=== PATIENT | female | born 1965 | race Caucasian/White ===

== ENCOUNTER → 2017-02-09 | Outpatient (CLI) | payer MEDICARE, BC ==
[~2017-02-09] MED LIST: ADRENOID CAPSU1 EACH PO; B COMPLEX1 EACH PO; CELEBREX100 MG PO; CELEXA10 M1 PO; CELEXA10 MG PO; CELEXA20 MG PO; CORTISPORI10 ML OTIC AS; DEXAMETHASONE4 MG PO; KEPPRA1000 MG PO; KEPPRA750 M1 PO; KEPPRA750 MG PO; LUNESTA PO; LYRICA PO; MULTI VITAMIN1 EACH PO; MULTIVITAMINS1 EAC3 PO; NOTE; VIMPAT150 MG PO; VITAMIN B122500 MCG PO; VITAMIN D1000 UNIT PO; WOMEN'S DAILY1 EAC4 PO; ZOFRAN PO
--- NOTE | ~2017-02-09 | CR278 ---
[facility] [[email or web address] A Service of [facility] & [facility] RADIOLOGY TEXT RESULTS PATIENT: ANALI WALKER LOCATION: [facility] : 63 UNIT #: [id number] AGE: [address]: Reinaldo Jones MD SEX: F ORDER DR: [id number] [address] [address] [id number] O MR#: [id number] Acc #: [id number] NAME: ANALI WALKER : 1965 SEX: F STUDY DATE/TIME: 02/09/2017 15:18 UNIT: SRAD ROOM: STUDY DESCRIPTION: CR Wrist 2 View Lt Attending Physician: Reinaldo Jones M.D. Referring Physician: Reinaldo Jones M.D. Ordering Physician: Reinaldo Jones M.D. Primary Care Physician: Chavez Toro M.D. MEDICAL IMAGING REPORT This report is preliminary unless electronic signature is present. EXAM Left wrist 2 views 02/09/2017 HISTORY Left wrist pain distal forearm pain for 2 weeks. No known injury. Pain medial and lateral aspect of the left wrist. FINDINGS Wrist evaluation in multiple projections shows normal mineralization of the bony structures about the wrist and satisfactory articular relationship of the radius and ulna to the proximal carpal row and of the distal carpal segments to the metacarpal bases. There is no indication of fracture or dislocation, and no soft tissue radiopaque foreign body is present. No congenital defects are apparent. IMPRESSION Normal wrist. Dictated by... Hernan Obregon M.D. THIS IS AN ELECTRONICALLY VERIFIED REPORT Hernan Obregon M.D. at 02/12/2017 10:36 AM RIKKI/bryan TD: 02/10/2017 05:29 JOB #: [id number] MEDICAL IMAGING REPORT
== END | disposition home or self-care (01) ==
LOC: SRAD 15:08
DX: C71.1 Malignant neoplasm of frontal lobe (principal); G40.109 Localization-related (focal) (partial) symptomatic epilepsy and epileptic syndromes with simple partial seizures, not intractable, without status epilepticus; G72.0 Drug-induced myopathy; R63.5 Abnormal weight gain
CPT/HCPCS: 73100

== ENCOUNTER → 2017-02-20 | Outpatient (CLI) | payer MEDICARE, BC ==
--- NOTE | ~2017-02-20 | MR17 ---
[facility] A Service of [facility] & [facility] RADIOLOGY TEXT RESULTS PATIENT: ANALI WALKER [facility] 63 UNIT #: [id number] AGE: [address]: Reinaldo Jones MD SEX: F ORDER DR: [id number] [address] [address] [id number] O MR#: [id number] Acc #: [id number] NAME: ANALI WALKER : 1965 SEX: F STUDY DATE/TIME: 02/20/2017 17:03 [facility] ROOM: STUDY DESCRIPTION: MR Brain WWo Contrast Attending Physician: Reinaldo Jones M.D. Ordering Physician: Reinaldo Jones M.D. Primary Care Physician: Chavez Toro M.D. MRI CENTER REPORT This report is preliminary unless electronic signature is present. EXAM MRI of the brain without and with HISTORY Malignant neoplasm frontal lobe, grade 2 astrocytoma for followup. Chemotherapy in 2014, radiation therapy in 2015. Surgery in 2012. COMMENT MRI of the brain was performed prior to and following intravenous administration of 12 mL of MultiHance. There is a comparison study from 11/16/2016. Redemonstrated are postoperative and post-therapeutic changes to the patient's known astrocytoma centered at the left posterior frontal left anterior parietal lobe. Multiseptate cystic mass predominates. Measurements are about 3.7 x 3.4 x 2.0 cm and it is essentially stable. There are several areas of increased signal intensity on T1-weighted imaging on precontrast imaging. This is most consistent with old blood product or mineral deposition and the appearance is unchanged from prior. Allowing for this precontrast high-signal intensity I believe there is a nodular focus of enhancement at the medial aspect of the left thalamus which is new about 7.0 mm in dimension and in the current setting most worrisome for some local tumor progression. I would suggest followup imaging in about 3 months to reassess this area. Post therapeutic change such as radiation necrosis is in the differential but felt less likely. The small area of nodular enhancement is also associated with some new FLAIR and T2 signal abnormality though there is no appreciable mass effect at this time. There is also a focus of new T2 and FLAIR signal abnormality in the left posterior frontal centrum semiovale that measures about 1.1 cm in dimension. This is nonspecific and could be related to tumor progression or post-therapeutic change. Otherwise the pattern of T2 and FLAIR signal abnormality is relatively stable. There are some small STS. [facility] A Service of [facility] RADIOLOGY TEXT RESULTS PATIENT: ANALI WALKER [facility] 63 UNIT #: [id number] AGE: [address]: Reinaldo Jones MD SEX: F ORDER DR: areas of old blood product deposition relatively stable. There is no extraaxial fluid collection. There is no hydrocephalus or midline shift. The major intracranial flow voids are maintained. Paranasal sinuses are clear. The mastoid air cells are clear. IMPRESSION On comparison to the study from 11/16/2016, there has been the interval development of a small area of nodular enhancement at the medial aspect of the left thalamus up to about 7.0 mm largest diameter. It is not associated with mass effect. It lies just medial to the areas of mineral deposition noted previously. Additionally, there is a small area of T2 and FLAIR signal abnormality, new in the left frontal centrum semiovale up to about 1.1 cm dimension. This is not associated with enhancement or mass effect. The cystic area of the postoperative bed is stable. Measurements are given above. There is no midline shift or hydrocephalus. The areas of change could be due to progression of tumor or alternatively could be due to post-therapeutic change such as radiation necrosis. For this reason I would recommend a short-term followup MRI in about 3 months to reassess. STAT * RESULT Dictated by... Alma Mccarthy M.D. THIS IS AN ELECTRONICALLY VERIFIED REPORT Alma Mccarthy M.D. at 02/21/2017 4:35 PM Santo TD: 02/21/2017 11:51 JOB #: [id number] MRI CENTER REPORT Page 1 of 1
== END | disposition home or self-care (01) ==
LOC: SMRI 16:23
DX: C71.1 Malignant neoplasm of frontal lobe (principal); G40.109 Localization-related (focal) (partial) symptomatic epilepsy and epileptic syndromes with simple partial seizures, not intractable, without status epilepticus; G72.0 Drug-induced myopathy; G93.89 Other specified disorders of brain
CPT/HCPCS: 70553; A9581

== ENCOUNTER 2017-05-13 19:28 | Inpatient (IN) | payer MEDICARE, BC ==
--- NOTE | ~2017-05-13 | HP ---
Unit #: [id number] #: [id number] Patient: ANALI WALKER [id number] [address] [place], [place] [address] [id number] I MR#: [id number] NAME: ANALI WALKER ROOM: 306 Age: 51 Sex: F Admission Date: 05/13/2017 : 1965 Attending Physician: Chavez Toro M.D. Primary Care Physician: Chavez Toro M.D. HISTORY AND PHYSICAL HISTORY OF PRESENT ILLNESS The patient is a 51-year-old white female with a history of astrocytoma with frontal lobe (1) secondary to seizure disorder, fibromyalgia syndrome, secondary to previous craniotomy. Currently he is being treated by Dr. Jones, as well as (2) with emergence with [facility], presented to the emergency room with one week of worsening right-sided weakness. In the emergency room she was revaluated and had normal vital signs and normal labs. CT scan showed no change. They consulted Dr. Rogel who is web application dev specialist for Dr. oJnes who reports to us to admit the patient for MRI, which is already scheduled toward the end of the month. She has had no recent seizures. No change in bowel or bladder habits, although she had one episode of urinary incontinence last week. Her mother is at the bedside during the history and physical examination. She is still ambulatory. She definitely had increased weakness in the right face, right arm, and right leg. I am no sure what the plan is at this point but in any case she is going to resume under home meds. SCDs are in place for DVT prophylaxis. Oncology is being consulted. Neurology was consulted but the patient refuses. ALLERGIES Penicillin. MEDICATIONS PRIOR TO ADMISSION Vimpat 150 mg b.i.d.; Lyrica 150 mg daily; Keppra 1,000 mg b.i.d.; Celexa 20 mg daily; B12 500 mcg daily; multivitamins daily; Celebrex 100 mg b.i.d.; vitamin D 1,000 units daily. PAST SURGICAL HISTORY Previous craniotomy and hysterectomy. SOCIAL HISTORY Drinks alcohol occasionally. No tobacco use. No street drug use. FAMILY HISTORY Noncontributory. SOCIAL HISTORY She is a hairdresser. PHYSICAL EXAMINATION GENERAL: She is awake, alert and oriented x3 in no acute distress. VITAL SIGNS: Mother is at the bedside and afebrile, pulse 67, respirations 16, blood pressure 134/89, O2 sat 96% on room air. HEENT: Unremarkable except for some right facial drooping. Unit #: [id number] #: [id number] Patient: WALKER,ANALI NECK: Supple without JVD, lymphadenopathy or thyromegaly. CHEST: Clear to auscultation. HEART: Regular rate and rhythm without any murmurs, rubs or gallops. ABDOMEN: Soft, nondistended and nontender with positive bowel sounds and no hepatosplenomegaly. EXTREMITIES: No clubbing, cyanosis or edema. The patient has decreased sensation and strength throughout the right entire side. She has 3/4 strength in the right upper extremity and 4/5 in the right lower extremity. DIAGNOSTIC STUDIES LAB VALUES: Urinalysis normal. CBC normal. CMP normal except for a sodium of 134 IMAGING STUDIES: CT scan of the brain may change per ER physician. IMPRESSION 1. Left frontal lobe astrocytoma. 2. Secondary to seizure disorder. 3. Fibromyalgia syndrome. 4. Right hemiparesis. PLAN MRI with and without contrast. Oncology consultation. Further evaluation pending results of the above. Dictated by Chavez Toro M.D. AURELIANO/yoandy TD: 05/14/2017 08:07 JOB #: [id number] HISTORY AND PHYSICAL Page 1 of 1 X Chavez Toro MD X HISTORY AND PHYSICAL
--- NOTE | ~2017-05-13 | MR122 ---
[facility] A Service of [facility] / [facility] RADIOLOGY TEXT RESULTS PATIENT: ANALI WALKER LOCATION: [facility] 306- : [birth year] UNIT #: [id number] AGE: [address]: Chavez Toro MD SEX: F ORDER DR: [id number] [id number] [facility]. [place], [place] [address] [id number] I MR#: [id number] Acc #: [id number] NAME: ANALI WALKER : 1965 SEX: F STUDY DATE/TIME: 05/14/2017 8:09 UNIT: A [facility] ROOM: 306 STUDY DESCRIPTION: MR MRA Head Wo Contrast Attending Physician: Chavez Toro M.D. Ordering Physician: Chavez Toro M.D. Primary Care Physician: Chavez Toro M.D. MRI CENTER REPORT This report is preliminary unless electronic signature is present. EXAM Head MRA, no contrast, 05/14/2017. HISTORY 1-week history of decreasing mobility of right arm and leg. History of astrocytoma. PROCEDURE Axial rosw-eb-qsoeuc head MRA with 3-dimensional reformats. 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 There is symmetric intracranial vascularity, though there is slight mass effect on the left distal MCA territory vessels, due to the left frontoparietal tumor. There is no aneurysm or flow-limiting stenosis. IMPRESSION Potentially normal head MRA. No aneurysm or flow-limiting stenosis. Somewhat distorted/displaced vascularity in the left MCA territory secondary to the known brain tumor, but no acute vascular abnormality is seen. Dictated by... Sabas Warner M.D. THIS IS AN ELECTRONICALLY VERIFIED REPORT Sabas Warner M.D. at 05/15/2017 3:59 PM ALY/santi TD: 05/14/2017 17:20 [facility] A Service of [facility] / [facility] RADIOLOGY TEXT RESULTS PATIENT: ANALI WALKER LOCATION: [facility] 306-01 : [birth year] UNIT #: [id number] AGE: [address]: Chavez Toro MD SEX: F ORDER DR: JOB #: [id number] MRI CENTER REPORT Page 1 of 1 COPY
--- NOTE | ~2017-05-13 | CT71 ---
[facility] A Service of [facility] & [facility] RADIOLOGY TEXT RESULTS PATIENT: ANALI WALKER LOCATION: [facility] 306-01 : [birth year] UNIT #: [id number] AGE: [address]: Chavez Toro MD SEX: F ORDER DR: [id number] [facility] [address] [facility]. [place], [place] [address] [id number] I MR#: [id number] Acc #: [id number] NAME: ANALI WALKER : 1965 SEX: F STUDY DATE/TIME: 05/13/2017 20:54 UNIT: [facility] ROOM: 306 STUDY DESCRIPTION: CT Head Wo Contrast Attending Physician: Chavez Toro M.D. Ordering Physician: Saul Kang Aprn Primary Care Physician: Chavez Toro M.D. MEDICAL IMAGING REPORT This report is preliminary unless electronic signature is present EXAM CT head without contrast dated 05/13/2017. MRI brain with and without contrast dated 02/20/17. COMPARISON CT head without contrast dated 02/28/2016. HISTORY Decreased mobility of the right side of the body for 1 week, worsening. History of left frontal lobe tumor. The CT exam was performed with one or more of the following radiation dose reduction techniques: automatic exposure control, adjustment of mA and/or kV according to patient size, and iterative reconstruction. FINDINGS CT of the head was obtained without contrast in the axial plane as per the protocol. Status post left frontal craniotomy along the posterior and inferior aspect. Stable. Underlying hypodense 3.0 x 3.4 cm lesion is noted with peripheral calcification along the medial and inferior aspect. There are probably some thin septations in it too. Previously it measured 3.4 x 3.2 cm and it is probably relatively stable given the differences in slice selection. No significant adjacent edematous change. There is a new hypodense 7 mm lesion in the left thalamus when compared to the prior CT head from 02/28/2016 but it is stable when compared to the previous MRI brain from 02/20/2017. No significant interval new abnormality. Mastoid air cells and paranasal sinuses are unremarkable. Orbits with the ocular structures do not demonstrate any significant abnormality. IMPRESSION 1. No significant interval worsening when compared to the MRI brain from [facility] A Service of [facility] RADIOLOGY TEXT RESULTS PATIENT: ANALI WALKER LOCATION: [facility] 306-01 : [birth year] UNIT #: [id number] AGE: [address]: Chavez Toro MD SEX: F ORDER DR: 02/20/2017. 2. No new lesions including hemorrhage or mass. Previously noted lesions are stable. Dictated by... Ivelisse Mercado M.D. THIS IS AN ELECTRONICALLY VERIFIED REPORT Ivelisse Mercado M.D. at 05/14/2017 9:05 PM CPR/cmm TD: 05/14/2017 08:55 JOB #: [id number] MEDICAL IMAGING REPORT Page 1 of 1 COPY
--- NOTE | ~2017-05-13 | MR17 ---
[facility] A Service of [facility] & [facility] RADIOLOGY TEXT RESULTS PATIENT: ANALI WALKER LOCATION: [facility] 306-01 : 63 UNIT #: [id number] AGE: [address]: Chavez Toro MD SEX: F ORDER DR: [id number] [facility] [address] [place], [place] [address] [id number] I MR#: [id number] Acc #: [id number] NAME: ANALI WALKER : 1965 SEX: F STUDY DATE/TIME: 05/14/2017 8:19 UNIT: [facility] U ROOM: 306 STUDY DESCRIPTION: MR Brain WWo Contrast Attending Physician: Chavez Toro M.D. Ordering Physician: Chavez Toro M.D. Primary Care Physician: Chavez Toro M.D. MRI CENTER REPORT This report is preliminary unless electronic signature is present. EXAM Brain MRI with and without contrast 05/14/2017 COMPARISON 02/20/2017 PROCEDURE Routine brain MRI with and without contrast. CLINICAL HISTORY Grade 2 astrocytoma with 1 week history of decreasing mobility of right arm and leg. FINDINGS There is no MR evidence of acute restricted diffusion. There is a redemonstrated cystic intra-axial lesion on the left, which measures approximately 3.4 cm mediolaterally x 2.1 cm craniocaudally x 3.7 cm anteroposteriorly, which of itself is not significantly changed. However, clearly new since the prior study is abnormal signal and positive mass effect extending into the posterior corpus callosum and callosal genu, as well as increased abnormal signal in the left posterior thalamus when compared to the prior study. Postcontrast images show a new small area of cystic enhancement in the left posterior thalamus. There may have been a previously faint side enhancement in this region but it is I now cystic in appearance and currently measures about 12 x 7 mm compared to about 8 x 4 mm on the prior study. On coronal images, it measures about 11 x 6 mm compared to 7 x 5 mm on the prior exam. New abnormal FLARE signal is also seen in the putamen and globus pallidus when compared to the prior study, though not associated with abnormal enhancement. IMPRESSION STS. [facility] A Service of [facility] & [facility] RADIOLOGY TEXT RESULTS PATIENT: ANALI WALKER LOCATION: [facility] 306-01 : [birth year] UNIT #: [id number] AGE: [address]: Chavez Toro MD SEX: F ORDER DR: 1. New cystic change in the left thalamus/thalamic pulvinar and new mass effect in the posterior corpus callosum/callosal genu without abnormal enhancement, suggesting new tumor growth, as well as new abnormal signal in the left putamen and globus pallidus though whether this represents vasogenic edema or a nonenhancing tumor extension is less certain. 2. The primary cystic portion of the tumor itself is not convincingly changed since the prior study. There is no midline shift or hydrocephalus. Dictated by... Sabas Warner M.D. THIS IS AN ELECTRONICALLY VERIFIED REPORT Sabas Warner M.D. at 05/15/2017 3:58 PM TEV/aa TD: 05/14/2017 15:44 JOB #: [id number] MRI CENTER REPORT Page 1 of 1 COPY
[~2017-05-13 19:28] MED LIST changes: -B COMPLEX1 EACH PO; -CELEBREX100 MG PO; -CELEXA10 M1 PO; -CELEXA20 MG PO; -KEPPRA1000 MG PO; -MULTIVITAMINS1 EAC3 PO; -NOTE; -VIMPAT150 MG PO; -VITAMIN B122500 MCG PO; -VITAMIN D1000 UNIT PO; -WOMEN'S DAILY1 EAC4 PO; -ZOFRAN PO
[2017-05-13 20:55] LABS: URINE APPEARANCE CLEAR; URINE BILIRUBIN NEG (NEG); URINE BLOOD NEG (NEG); URINE COLOR YELLOW; URINE GLUCOSE NEG (NEG); URINE KETONE NEG (NEG); URINE LEUKOCYTE ESTERASE NEG (NEG); URINE NITRATE NEG (NEG); URINE PROTEIN NEG (NEG); URINE SPECIFIC GRAVITY 1.008 (1.003-1.035)
[2017-05-13 20:58] LABS: CULTURE INDICATED? NO
[2017-05-13 21:38] LABS: BASOPHIL# 0.1 X10e3 (0-0.3); BASOPHIL% 1.3 % (0-2.5); EOSINOPHIL# 0.2 X10e3 (0-0.7); EOSINOPHIL% 3.1 % (0.0-7.0); HEMATOCRIT 38.1 % (35.0-45.0); HEMOGLOBIN 13.2 gm/dL (12.0-16.0); LYMPHOCYTE# 1.4 X10e3 (1.0-3.5); LYMPHOCYTE% 27.7 % (17.0-45.0); MEAN CORPUSCULAR HEMOGLOBIN 31.5 PG (28-34); MEAN CORPUSCULAR HGB CONC 34.6 g/dL (30-36); MEAN PLATELET VOLUME 6.3 FL (6.5-11.5); MONOCYTE# 0.5 X10e3 (0-1.0); NEUTROPHIL# 2.8 X10e3 (1.5-7.1); NEUTROPHIL% 57.9 % (40-75); PLATELET COUNT 172 X10e3 (140-420); RED BLOOD COUNT 4.19 X10e (3.90-5.30); RED CELL DISTRIBUTION WIDTH 13.5 % (11.0-15.5); WHITE BLOOD COUNT 4.9 X10e3 (4.0-10.5)
[2017-05-13 21:43] LABS: DIFF IND NO
[2017-05-13 22:50] LABS: BILIRUBIN,TOTAL 0.5 mg/dL (0.2-2.0); BUN/CREATININE RATIO 25.71; CALCIUM SERUM 8.7 mg/dL (8.4-10.2); CREATININE SERUM 0.7 mg/dL (0.6-1.4); GLOM FILT RATE Estimated 99.6 mL/min (>60); POTASSIUM 3.6 mmol/L (3.5-5.1); PROTEIN TOTAL SERUM 6.1 g/dL (6.0-8.3)
[2017-05-13 22:52] LABS: BILIRUBIN, DIRECT 0.1 mg/dL (0.0-0.2); BILIRUBIN,INDIRECT 0.4 mg/dL (0.0-0.9)
[2017-05-13] MEDS ORDERED: VIMPAT150 MG PO (23:17)
[2017-05-13] MEDS ORDERED: LYRICA PO (23:17)
[2017-05-13] MEDS ORDERED: KEPPRA1000 MG PO (23:31)
[2017-05-13] MEDS ORDERED: CELEXA20 MG PO (23:32)
[2017-05-13] MEDS ORDERED: VITAMIN B122500 MCG PO (23:33)
[2017-05-13] MEDS ORDERED: WOMEN'S DAILY1 EAC4 PO (23:33)
[2017-05-13] MEDS ORDERED: CELEBREX100 MG PO (23:34)
[2017-05-13] MEDS ORDERED: VITAMIN D1000 UNIT PO (23:34)
[2017-05-14 05:45] LABS: BASOPHIL% 1.1 % (0-2.5); EOSINOPHIL# 0.2 X10e3 (0-0.7); EOSINOPHIL% 4.6 % (0.0-7.0); LYMPHOCYTE# 1.3 X10e3 (1.0-3.5); LYMPHOCYTE% 28.8 % (17.0-45.0); MEAN CORPUSCULAR HEMOGLOBIN 30.6 PG (28-34); MEAN CORPUSCULAR HGB CONC 33.2 g/dL (30-36); MEAN PLATELET VOLUME 6.5 FL (6.5-11.5); MONOCYTE# 0.5 X10e3 (0-1.0); MONOCYTE% 12.1 % (3.0-12.0); NEUTROPHIL# 2.3 X10e3 (1.5-7.1); NEUTROPHIL% 53.4 % (40-75); PLATELET COUNT 164 X10e3 (140-420); RED BLOOD COUNT 4.24 X10e (3.90-5.30); RED CELL DISTRIBUTION WIDTH 13.5 % (11.0-15.5); WHITE BLOOD COUNT 4.4 X10e3 (4.0-10.5)
[2017-05-14 05:56] LABS: DIFF IND NO
[2017-05-14 06:23] LABS: CREATININE SERUM 0.5 mg/dL (0.6-1.4); GLOM FILT RATE Estimated 111.3 mL/min (>60); POTASSIUM 3.7 mmol/L (3.5-5.1)
== END 2017-05-14 21:00 | disposition home or self-care (01) | DRG 55 ==
LOC: CED 19:28 → C3A PCU 23:25 → CEDOF 23:25 → C3A PCU 23:40 → CED 23:40 → C3A PCU 05-14 01:40 → CEDOF 05-14 01:40 → C3A PCU 05-14 21:00
PROVIDERS: Internal Medicine; Nurse Practitioner Family
DX: C71.1 Malignant neoplasm of frontal lobe (principal); G81.91 Hemiplegia, unspecified affecting right dominant side; G40.909 Epilepsy, unspecified, not intractable, without status epilepticus; M79.7 Fibromyalgia; Z88.0 Allergy status to penicillin; Z90.710 Acquired absence of both cervix and uterus
CPT/HCPCS: 36415; 70450; 70544; 70553; 80048; 80076; 81003; 85025; 99285; A9577; J1100

== ENCOUNTER → 2017-06-26 | Outpatient (CLI) | payer MEDICARE, BC ==
[~2017-06-26] MED LIST changes: +B COMPLEX1 EACH PO; +CELEBREX100 MG PO; +CELEXA10 M1 PO; +CELEXA20 MG PO; +KEPPRA1000 MG PO; +MULTIVITAMINS1 EAC3 PO; +NOTE; +VIMPAT150 MG PO; +VITAMIN B122500 MCG PO; +VITAMIN D1000 UNIT PO; +WOMEN'S DAILY1 EAC4 PO; +ZOFRAN PO
--- NOTE | ~2017-06-26 | MR17 ---
[facility] A Service of [facility] & [facility] RADIOLOGY TEXT RESULTS PATIENT: ANALI WALKER LOCATION: [facility] : 63 UNIT #: [id number] AGE: [address]: Reinaldo Jones MD SEX: F ORDER DR: [id number] [address] [address] [id number] O MR#: [id number] Acc #: [id number] NAME: ANALI WALKER : 1965 SEX: F STUDY DATE/TIME: 06/26/2017 13:21 UNIT: [facility] ROOM: STUDY DESCRIPTION: MR Brain WWo Contrast Attending Physician: Reinaldo Jones M.D. Referring Physician: Reinaldo Jones M.D. Ordering Physician: Reinaldo Jones M.D. Primary Care Physician: Chavez Toro M.D. MRI CENTER REPORT This report is preliminary unless electronic signature is present. EXAM MRI of the brain with and without HISTORY Malignant neoplasm. Followup known grade 2 astrocytoma. Postop 2012. The patient complains of decreased mobility right side of body. Assess for progression since 05/14/2017. The patient is currently on chemotherapy and had radiation therapy in 2016. MRI of the brain was performed prior to and following intravenous administration of 11 mL of MultiHance. COMPARISON: Comparison from 05/14/2017. There is interval worsening in the appearance of the brain. Again there is a mass lesion centered in the left posterior frontal anterior parietal lobe with multiloculated cystic component and surrounding T2 and FLAIR signal abnormality. The signal abnormality involves the left basal ganglia and thalamus and extends into the posterior aspect of the corpus callosum centered at the posterior body. Signal abnormality crosses to the right of midline in the corpus callosum. In comparison to prior study, there is increased size to be partially cystic/necrotic lesion in the left thalamus. This is associated with some increased surrounding enhancement and there is also increased enhancement in the portion of the tumor at the medial aspect of the large cystic component left parietooccipital lobe and extending into the posterior body of the left side corpus callosum. The thalamic lesion now measures about 1.7 cm largest axial dimension as compared to 1.2 cm of largest axial dimension. Also some increasing enhancement at the left lateral putamen and insula. There is increased local mass effect related to the enlarging lesions and there is some increased effacement of the left lateral ventricle. New/increasing enhancement is seen in the superior aspect of the left STS. [facility] A Service of [facility] RADIOLOGY TEXT RESULTS PATIENT: ANALI WALKER LOCATION: [facility] : 63 UNIT #: [id number] AGE: [address]: Reinaldo Jones MD SEX: F ORDER DR: temporal lobe and insula. Large cystic lesion centered in the left posterior frontal interparietal lobe is relatively stable. At this time there is no midline shift. There is no extraaxial fluid collection. There is no downward herniation. Chronic postoperative change is again noted. Areas of susceptibility again seen consistent with old blood product or mineral deposition. No recent intracranial hemorrhage is suspected on MRI. The major arterial intracranial flow voids are maintained. The mastoid air cells are clear and the paranasal sinuses are clear. IMPRESSION 1. The appearance of the brain is worse on comparison to 05/14/2017 with interval increase in size of the known mass lesion as well as interval increase in the amount of associated enhancement and mass effect. Findings are most concerning for tumor progression. Given the amount of enhancement seen, I suspect there is a component of D differentiation. 2. Measurements are provided above. Particular increase in size of the lesion in the left thalamus is noted in particular increase of enhancement is noted associated with the involvement in the posterior body of the left side corpus callosum. There is increased mass effect on the left lateral ventricle but no midline shift at this time. See full description of findings above. Dictated by... Alma Mccarthy M.D. THIS IS AN ELECTRONICALLY VERIFIED REPORT Alma Mccarthy M.D. at 06/27/2017 9:56 AM TARAH/wolf TD: 06/27/2017 08:50 JOB #: [id number] MRI CENTER REPORT Page 1 of 1
== END | disposition home or self-care (01) ==
LOC: SMRI 11:19 → CMRI 14:00
DX: C71.1 Malignant neoplasm of frontal lobe (principal); G40.109 Localization-related (focal) (partial) symptomatic epilepsy and epileptic syndromes with simple partial seizures, not intractable, without status epilepticus; G72.0 Drug-induced myopathy; R63.5 Abnormal weight gain
CPT/HCPCS: 70553; A9581

== ENCOUNTER → 2017-07-12 | Outpatient (CLI) | payer MEDICARE, BC ==
--- NOTE | ~2017-07-12 | MR17 ---
[facility] A Service of [facility] & [facility] RADIOLOGY TEXT RESULTS PATIENT: ANALI WALKER LOCATION: [facility] : 63 UNIT #: [id number] AGE: [address]: Reinaldo Jones MD SEX: F ORDER DR: [id number] [address] [address] [id number] O MR#: [id number] Acc #: [id number] NAME: ANALI WALKER : 1965 SEX: F STUDY DATE/TIME: 07/12/2017 17:47 UNIT: [facility] ROOM: STUDY DESCRIPTION: MR Brain WWo Contrast Attending Physician: Reinaldo Jones M.D. Referring Physician: Reinaldo Jones M.D. Ordering Physician: Reinaldo Jones M.D. Primary Care Physician: Chavez Toro M.D. MRI CENTER REPORT This report is preliminary unless electronic signature is present. 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 Complains of worsening deficits today with decreased mobility and inability to walk starting today with increasing right-sided weakness and stuttering words. Had radiation therapy in 2015 and craniotomy in 2012, and is currently on chemotherapy. COMMENTS MRI of the brain was performed prior to and following intravenous administration of 11 mL of MultiHance. The comparison study is from 06/26/2017. FINDINGS There is subtle increase in size of the known left thalamic mass lesion with a cystic central area and rim like enhancement. There is probably subtle increase in involvement at the posterior body of the corpus callosum with associated mass effect on the lateral ventricle. There may be slight decrease in the amount of enhancement but the extent of enhancement is not changed and changes in enhancement can be seen in the setting of medication alterations. Otherwise the appearance of the brain is not significantly changed from the study of 06/26/2017 with the extensive abnormalities detailed in that report. Overall the findings are consistent with progressing disease since the May 14, 2017, study. For reasons discussed previously. I suspect this is related to tumor progression rather than radiation necrosis and it is concerning for the presence of a component of dedifferentiation of the known tumor. There is nothing to suggest new hemorrhage. There is no extraaxial fluid collection. There is no change in ventricular size. There is no downward herniation. Again, the mass effect is more localized. The signal [facility] A Service of [facility] RADIOLOGY TEXT RESULTS PATIENT: ANALI WALKER LOCATION: [facility] : 63 UNIT #: [id number] AGE: [address]: Reinaldo Jones MD SEX: F ORDER DR: abnormality seen at the medial aspect of the left frontal lobe to anterior parietal lobe involves the motor cortex region and could account for the right leg weakness in a patient complaint of inability to walk. Again, there is extensive signal abnormality with mass effect in the left basal ganglia and left side insula and asymmetric signal abnormality into the left temporal lobe. The mastoid air cells are clear. The major arterial intracranial flow voids are maintained. There is nothing to suggest a recent ischemic insult. Again there are old postoperative changes left-side overlying the large multicystic area at the left parietooccipital lobe. IMPRESSION On comparison to study from 06/26/2017, subtle progression of disease is likely best appreciated at the left thalamic lesion. When comparison is made back to the study from April of this year, again there is overall progression of disease and please refer back to the report from 06/26/2017 for a detailed description of tumor and extent. For reasons discussed previously, it is felt most likely that there is progression of the patient's tumor rather than change due to radiation necrosis and findings raise concern for dedifferentiation of known grade 3 astrocytoma. There is again localized mass effect including mass effect on the left lateral ventricle but there is no midline shift or downward herniation at this time and there is no evidence for obstructive hydrocephalus. There is nothing to suggest new intracranial hemorrhage on the MRI and there is nothing to suggest a recent ischemic insult. STAT * RESULT Dictated by... Alma Mccarthy M.D. THIS IS AN ELECTRONICALLY VERIFIED REPORT Alma Mccarthy M.D. at 07/12/2017 10:51 PM Stanley TD: 07/12/2017 19:32 JOB #: [id number] MRI CENTER REPORT Page 1 of 1
== END | disposition home or self-care (01) ==
LOC: SMRI 17:06
DX: C71.1 Malignant neoplasm of frontal lobe (principal); G40.109 Localization-related (focal) (partial) symptomatic epilepsy and epileptic syndromes with simple partial seizures, not intractable, without status epilepticus
CPT/HCPCS: 70553; A9581

== ENCOUNTER → 2017-08-09 | Outpatient (CLI) | payer MEDICARE, BC ==
--- NOTE | ~2017-08-09 | MR17 ---
[facility] A Service of [facility] & [facility] RADIOLOGY TEXT RESULTS PATIENT: ANALI WALKER LOCATION: [facility] : 63 UNIT #: [id number] AGE: [address]: Reinaldo Jones MD SEX: F ORDER DR: [id number] [facility] [address] [place], [place] [address] [id number] O MR#: [id number] Acc #: [id number] NAME: ANALI WALKER. : 1965 SEX: F STUDY DATE/TIME: 08/09/2017 10:20 UNIT: [facility] ROOM: STUDY DESCRIPTION: MR Brain WWo Contrast Attending Physician: Reinaldo Jones M.D. Referring Physician: Reinaldo Jones M.D. Ordering Physician: Reinaldo Jones M.D. Primary Care Physician: Chavez Toro M.D. MRI CENTER REPORT This report is preliminary unless electronic signature is present. EXAM MRI of the brain with and without contrast dated 08/09/2017 COMPARISON MRI of the brain with and without contrast dated 07/12/2017. HISTORY Patient has increasing tumor size and increase in right-sided weakness with difficulty walking for the last 6 weeks. FINDINGS Multisequence multiplanar imaging of the brain was obtained with and without contrast. 11 mL of MultiHance was administered intravenously. Status post left frontoparietal craniotomy with underlying multicystic lesion measuring 3.7 x 3.4 x 2.1 cm. Minimal precontrast increased T1 signal is noted along its periphery without nodular enhancement. Left thalamus demonstrates 1.4 x 1.6 x 1.6 cm lesion which is predominantly cystic, stable. Minimal rind of peripheral enhancement is noted which has slightly decreased since last month. Hypointense gradient signal changes are associated with both the lesions suspicious for mild hemorrhage or calcium deposition. Increased T2 FLAIR signal associated with this lesion and with the left basal ganglia, adjacent external/extreme capsule, left insular cortex and the frontoparietal lesion appear to be stable to slightly worse, particularly associated with the left thalamus. Ventricular size is stable. There is increased T2 signal noted within the mid to posterior body of the corpus callosum with associated faint enhancement in the mid to left paramidline aspect, stable. There is increased T2 signal noted along the posteromedial aspect of the superior left frontal lobe along the superior frontal gyrus extending posteriorly towards the anterior parietal lobe, stable. Small 6 mm focus of enhancement is noted in the mid left insular cortex, posterior left insular cortex and along the posterior aspect of the left STS. [facility] A Service of [facility] RADIOLOGY TEXT RESULTS PATIENT: ANALI WALKER LOCATION: [facility] : 63 UNIT #: [id number] AGE: [address]: Reinaldo Jones MD SEX: F ORDER DR: sylvian fissure, stable. These measure less than a centimeter in size and are associated with the increased T2 signal in these regions. Minimal restricted diffusion is noted in the inferomedial left basal ganglia lesion close to the left anterior commissure, stable. No significant interval new enhancing lesions. IMPRESSION 1. The peripheral enhancement associated the cystic lesion in the left thalamus appears to be slightly less. It could be true mild decrease or related to phase of contrast imaging. Mild associated similar prominence of the axial T2 FLAIR signal in this region is also nonspecific. The remaining findings are predominantly stable given the differences in slice selection. Dictated by... Ivelisse Mercado M.D. THIS IS AN ELECTRONICALLY VERIFIED REPORT Ivelisse Mercado M.D. at 08/10/2017 4:50 PM CPR/rnr TD: 08/10/2017 05:58 JOB #: [id number] MRI CENTER REPORT Page 1 of 1 COPY
== END | disposition home or self-care (01) ==
LOC: SMRI 08-08 08:45 → CMRI 09:45 → SMRI 10:00
DX: C71.1 Malignant neoplasm of frontal lobe (principal); G40.109 Localization-related (focal) (partial) symptomatic epilepsy and epileptic syndromes with simple partial seizures, not intractable, without status epilepticus; G93.0 Cerebral cysts
CPT/HCPCS: 70553; A9577

== ENCOUNTER 2017-08-14 12:46 | Emergency (ER) | payer MEDICARE, BC ==
[~2017-08-14] VITALS: Ht 170.2 cm; Wt 59.2 kg
[~2017-08-14 12:46] MED LIST changes: -B COMPLEX1 EACH PO; -CELEXA10 M1 PO; -MULTIVITAMINS1 EAC3 PO; -NOTE; -ZOFRAN PO
[2017-08-14] MEDS ORDERED: KEPPRA1000 MG PO (13:23)
[2017-08-14] MEDS ORDERED: CELEBREX100 MG PO (13:24)
[2017-08-14] MEDS ORDERED: CELEXA10 M1 PO (13:24)
[2017-08-14] MEDS ORDERED: LYRICA PO (13:24)
[2017-08-14] MEDS ORDERED: VIMPAT150 MG PO (13:24)
[2017-08-14] MEDS ORDERED: MULTIVITAMINS1 EAC3 PO (13:25)
[2017-08-14] MEDS ORDERED: ZOFRAN PO (13:25)
[2017-08-14] MEDS ORDERED: B COMPLEX1 EACH PO (13:25)
[2017-08-14] MEDS ORDERED: DEXAMETHASONE4 MG PO (13:25)
[2017-08-14] MEDS ORDERED: NOTE (13:26)
[2017-08-14 14:00] LABS: BASOPHIL% 0.4 % (0-2.5); EOSINOPHIL% 0.7 % (0.0-7.0); HEMATOCRIT 29.6 % (35.0-45.0); HEMOGLOBIN 9.9 gm/dL (12.0-16.0); LYMPHOCYTE# 0.8 X10e3 (1.0-3.5); LYMPHOCYTE% 36.5 % (17.0-45.0); MEAN CELL VOLUME 97.8 FL (83-96); MEAN CORPUSCULAR HEMOGLOBIN 32.7 PG (28-34); MEAN CORPUSCULAR HGB CONC 33.4 g/dL (30-36); MEAN PLATELET VOLUME 6.6 FL (6.5-11.5); MONOCYTE# 0.2 X10e3 (0-1.0); MONOCYTE% 9.6 % (3.0-12.0); NEUTROPHIL# 1.1 X10e3 (1.5-7.1); NEUTROPHIL% 52.8 % (40-75); RED BLOOD COUNT 3.02 X10e (3.90-5.30); RED CELL DISTRIBUTION WIDTH 20.1 % (11.0-15.5); WHITE BLOOD COUNT 2.1 X10e3 (4.0-10.5)
[2017-08-14 14:07] LABS: ALBUMIN SERUM 3.1 g/dL (3.5-5.0); BILIRUBIN, DIRECT 0.1 mg/dL (0.0-0.2); BILIRUBIN,INDIRECT 0.6 mg/dL (0.0-0.9); BILIRUBIN,TOTAL 0.7 mg/dL (0.2-2.0); CALCIUM SERUM 8.3 mg/dL (8.4-10.2); CREATININE SERUM 0.5 mg/dL (0.6-1.4); GLOM FILT RATE Estimated 110.5 mL/min (>60); POTASSIUM 3.8 mmol/L (3.5-5.1); PROTEIN TOTAL SERUM 4.9 g/dL (6.0-8.3)
[2017-08-14 14:20] LABS: PLATELET COUNT 39 X10e3 (140-420)
[2017-08-14 14:21] LABS: DIFF IND YES
[2017-08-14 14:26] LABS: ANISOCYTOSIS MOD; PLATELET ESTIMATE DECREASED (NORMAL); POIKILOCYTOSIS MOD
[2017-08-14 14:29] LABS: URINE SOURCE CLEAN CATCH
[2017-08-14 14:33] LABS: URINE APPEARANCE CLEAR; URINE BILIRUBIN NEG (NEG); URINE BLOOD TRACE (NEG); URINE COLOR YELLOW; URINE GLUCOSE NEG (NEG); URINE KETONE NEG (NEG); URINE LEUKOCYTE ESTERASE NEG (NEG); URINE NITRATE NEG (NEG); URINE PROTEIN 3+ (NEG); URINE SPECIFIC GRAVITY 1.022 (1.003-1.035); URINE UROBILINOGEN 0.2 MG/DL (NEG)
[2017-08-14 14:36] LABS: URINE BACTERIA AUWI NEG (NEGATIVE); URINE SQUAMOUS EPITHELIAL CELL OCC /[HPF]
[2017-08-14 14:43] LABS: CULTURE INDICATED? NO; U HYALINE CASTS AUWI 0-2 /[LPF]
== END 2017-08-14 15:28 | disposition home or self-care (01) ==
LOC: CED 12:46
PROVIDERS: Emergency Medicine
DX: D69.6 Thrombocytopenia, unspecified (principal); D61.810 Antineoplastic chemotherapy induced pancytopenia; G40.909 Epilepsy, unspecified, not intractable, without status epilepticus; Z90.710 Acquired absence of both cervix and uterus; Z88.0 Allergy status to penicillin; Z79.899 Other long term (current) drug therapy
CPT/HCPCS: 36415; 51701; 80048; 80076; 81003; 85025; 96365; 99283; J1953